=== PATIENT | male | born 1980 | race Caucasian/White ===

== ENCOUNTER 2020-05-15 01:21 | Emergency (ER) | payer OTHER, SELFPAY ==
[~2020-05-15] VITALS: Ht 182.9 cm; Wt 117.9 kg
[2020-05-15 01:25] VITALS: Ht 182.9 cm; Wt 117.9 kg
[2020-05-15 02:24] VITALS: BP 163/88
== END 2020-05-15 02:24 | disposition home or self-care (01) ==
LOC: ED 01:21
DX: U07.1 COVID-19 (principal)
CPT/HCPCS: 82962; U0003